=== PATIENT | male | born 1965 | race Caucasian/White ===

== ENCOUNTER 2018-01-27 08:25 | Day surgery (SDC) | payer OTHER ==
[2018-01-26 10:57] VITALS: BMI 30.9
[2018-01-27] MEDS ORDERED: LIDOCAINE HCL/PF 2% SDV 5ML VIAL ONE (08:43)
[2018-01-27] MEDS ORDERED: PROPOFOL 20 ML ONE ×2 (08:44)
[2018-01-27 10:42] VITALS: BP 113/70; PULSE 56; TEMP 98.4
--- NOTE | 2018-01-30 09:07 | PATH ---
Surgical Pathology Report Patient Name: MORENITA ALFONSO JR [facility]. Rec. #: [id number] /Age/Gender: 1965 (Age: 52) / M Account: [id number] Location: U-ENDOSCOPY Taken: 01/27/2018 Received: 01/27/2018 Reported: 01/30/2018 Physicians: Julissa Ruby M.D. Specimen(s) Received A: RECTAL POLYP B: BX CECAL POLYP C: BX DISTAL RIGHT COLON POLYP D: SIGMOID POLYP Clinical History Preoperative diagnosis: History of polyps, family history of polyps Postoperative diagnosis: Colon polyps, diverticulosis Final Diagnosis A. COLON, RECTUM, BIOPSY: HYPERPLASTIC POLYP. B. COLON, CECUM, BIOPSY: COLONIC MUCOSA WITH PROMINENT LYMPHOID AGGREGATE WITHIN LAMINA PROPRIA. NO ADENOMATOUS CHANGE IDENTIFIED. C. COLON, DISTAL RIGHT, BIOPSY: TUBULAR ADENOMA. D. COLON, SIGMOID, BIOPSY: HYPERPLASTIC POLYP. Electronically Signed Steve Daugherty M.D. Gross Description A. Received in formalin, labeled "rectal polyp" is a sorto, irregular portion of soft tissue measuring 0.3 cm. in greatest dimension. The specimen is submitted in toto in one cassette. B. Received in formalin, labeled "biopsy cecal polyp" is a sorto, irregular portion of soft tissue measuring 0.4 cm. in greatest dimension. The specimen is submitted in toto in one cassette. C. Received in formalin, labeled "biopsy distal right colon polyp" are 4 sorto, irregular portions of soft tissue ranging from 0.1-0.5 cm. in greatest dimension. The specimens are submitted in toto in one cassette. D. Received in formalin, labeled "sigmoid polyp" is a sorto, irregular portion of soft tissue measuring 0.1 cm. in greatest dimension. The specimen is submitted in toto in one cassette. DL01/27/2018 saudi01/27/2018
== END 2018-01-27 10:10 | disposition home or self-care (01) ==
LOC: JASU-ENDO 08:25
PROVIDERS: ATTEND Internal Medicine Gastroenterology
PROC: 0DBN8ZX Excision of Sigmoid Colon, Via Natural or Artificial Opening Endoscopic, Diagnostic (ICD-10-PCS; 2018-01-27)
PROC: 0DBK8ZX Excision of Ascending Colon, Via Natural or Artificial Opening Endoscopic, Diagnostic (ICD-10-PCS; 2018-01-27)
PROC: 0DBH8ZX Excision of Cecum, Via Natural or Artificial Opening Endoscopic, Diagnostic (ICD-10-PCS; 2018-01-27)
PROC: 0DBP8ZX Excision of Rectum, Via Natural or Artificial Opening Endoscopic, Diagnostic (ICD-10-PCS; principal; 2018-01-27 09:00)
DX: Z12.11 Encounter for screening for malignant neoplasm of colon (principal); Z86.010 Personal history of colon polyps; K62.1 Rectal polyp; D12.2 Benign neoplasm of ascending colon; D12.0 Benign neoplasm of cecum; D12.5 Benign neoplasm of sigmoid colon; K57.30 Diverticulosis of large intestine without perforation or abscess without bleeding; K64.8 Other hemorrhoids; Z83.71 Family history of colonic polyps
CPT/HCPCS: 88305-TC